=== PATIENT | male | born 1935 | race Caucasian/White ===

== ENCOUNTER 2017-03-22 15:08 | Outpatient (CLI) | payer MEDICARE, BC | END 2017-03-22 15:09 | disposition short-term general hospital (02) | LOC: EMS 15:08 | PROVIDERS: ATTEND Surgery | DX: S01.21XA Laceration without foreign body of nose, initial encounter (principal); S01.511A Laceration without foreign body of lip, initial encounter; S01.81XA Laceration without foreign body of other part of head, initial encounter; W54.0XXA Bitten by dog, initial encounter | CPT/HCPCS: A0170; A0425; A0427 ==